=== PATIENT | male | born 1945 | race Caucasian/White ===

== ENCOUNTER 2019-01-24 15:59 | Outpatient (CLI) | payer MEDICARE, OTHER, SELFPAY ==
[2019-01-24 16:30] LABS: Abs Immature Grans 0.02 k/cumm (0.0-0.09); Absolute Basophil Count 0.08 k/cumm (0.0-0.2); Absolute Eosinophil Count 0.18 k/cumm (0.0-0.7); Absolute Lymphocyte Count 2.98 k/cumm (1.2-3.4); Absolute Monocyte Count 1.13 k/cumm (0.11-0.7); Absolute Neutrophil Count 6.37 k/cumm (1.2-6.7); Basophils % 0.7; Eosinophils % 1.7; HCT 49.4 % (40.0-50.0); HGB 16.8 g/dL (13.5-17.5); Immature Grans % 0.2; Lymphocytes % 27.7; Mean Corpuscular Hemoglobin 29.9 pg (27.0-33.0); Mean Corpuscular Volume 87.9 fL (80-95); Monocytes % 10.5; Neutrophils % 59.2; Platelet Count 233 x1000/uL (130-400); RBC 5.62 m/cumm (4.50-6.00); RBC Distribution Width 13.3 % (11.8-14.1); White Blood Cell Count 10.76 k/cumm (4.4-10.8)
[2019-01-24 18:12] LABS: ALT 59 U/L (12-78); AST 40 U/L (15-37); Albumin 3.6 g/dL (3.4-5.0); Alkaline Phosphatase 109 U/L (46-116); Anion Gap 12.4 mmol/L (3-11); BUN 20 mg/dL (7-18); Bilirubin, Total 0.7 mg/dL (0.2-1.0); CO2 25.6 mmol/L (21.0-32.0); CREATININE 1.15 mg/dL (0.70-1.30); Calcium 8.8 mg/dL (8.5-10.1); Chloride 100 mmol/L (98-107); Cholesterol 197 mg/dL (50-200); Glucose 100 mg/dL (70-100); HDL Cholesterol 54 mg/dL (40-60); LDL CHOLESTEROL 123 mg/dL (<100); Potassium 4.1 mmol/L (3.5-5.1); Sodium 138 mmol/L (136-145); TSH (W/Ref FT4) 1.58 uIU/mL (0.358-3.74); Total Protein 7.3 g/dL (6.4-8.2); Triglyceride 127 mg/dL (30-150)
[2019-01-28 15:18] LABS: Lipase 218 U/L (73-393)
[2019-01-28 15:20] LABS: Iron 109 ug/dL (50-175); Total Iron Binding Capacity 298 ug/dL (250-450); Transferrin Sat 37 % (20-55)
[2019-01-30 06:24] LABS: Vitamin D 25 Total 42.1 ng/ml (30-100)
== END 2019-01-24 16:19 ==
PROVIDERS: Family Medicine; PCP Nurse Practitioner Family; Visit Provider Nurse Practitioner Family
DX: K52.9 Noninfective gastroenteritis and colitis, unspecified (principal); R53.83 Other fatigue; I10 Essential (primary) hypertension; E78.5 Hyperlipidemia, unspecified; E55.9 Vitamin D deficiency, unspecified; R73.01 Impaired fasting glucose
CPT/HCPCS: 36415; 80053; 80061; 82306; 83690; 83721; 83540; 83550; 84443; 85025

== ENCOUNTER 2019-02-14 01:22 | Outpatient (CLI) | payer MEDICARE, OTHER, SELFPAY ==
--- NOTE | 2019-02-14 10:30 | ETT_ITS ---
*[facility]* *[facility]* [address] [place] [address] Stress Electrocardiography Javed protocol Date of study: 02/14/2019 *PATIENT PRESENTATION* Height: 180.3cm (71in) Blood Pressure: Weight: 150kg (330lb) BSA: 2.82m^2 Referring physician: Terrie Hook Ordering physician: Terrie Hook Impressions: - Normal study after maximal exercise. - Reduced functional capacity. Indication: R94.31, R06.09. History: REASON FOR TESTING: PATIENT HERE FOR TESTING TODAY FOR FURTHER RISK STRATIFICATION. HE PRESENTED TO HIS PCP ON 01/29/19 FOR FOLLOW UP. DURING VISIT WITH PCP AN EKG WAS DONE WHICH SHOWED SOME INVERTED T WAVES AND POSSIBLE Q WAVES--NO PREVIOUS EKG FOR COMPARISON. PATIENT TODAY REPORTS FOR THE LAST 1 1/2 YEARS TO 2 YEARS MOBILITY HAS BEEN MORE DIFFICULT AND HE HAS HAD SOME INCREASED SOB WITH LIGHT ACTIVITY AND SLIGHT DIZZYNESS THAT IS RELEIVED WITH SITTING DOWN AND RESTING. HE REPORTS WHEN HE SITS DOWN HIS VISION BECOMES TUNNEL VISION TO THE POINT OF ALMOST PASSING OUT. HE DENIES CHEST PAIN/PRESSURE OR SOB UPON ARRIVAL TO TESTING TODAY. SIGNIFICANT PAST MEDICAL HISTORY: CHRONIC LOWER BACK AND BILATERAL HIP PAIN. SMOKING STATUS: NEVER. EXERCISE ROUTINE: LIMITED CTIVITY D/T BILATERAL HIP AND LOWER BACK PAIN. Risk factors: Hypertension. Obesity. Dyslipidemia. Cholesterol: 197mg/dl. HDL: 54mg/dl. LDL: 123mg/dl. Triglycerides: 127mg/dl. ALLERGIES: NO KNOWN ALLERGIES. MEDICATIONS: ASPIRIN 81 MG DAILY, ACETAMINOPHEN 1000 MG QID PRN, LIALDA 4.8 GM DAILY, VITAMIN D 3000 UNITS DAILY, LIDOCAINE 5% PATCH TOPICAL DAILY PRN, ATORVASTATIN 40 MG DAILY, FLUTICASONE PROPIONATE NASAL SPRAY 50 MCG DAILY PRN, BENAZEPRIL 20 MG DAILY. Protocol: Javed protocol. Baseline ECG: SINUS RHYTHM. HR 64 BPM. Stress protocol: + +---+ + !Stage !HR !BP (mmHg) ! + +---+ + !Baseline supine !64 !140/70 (93) ! + +---+ + !Baseline standing !86 !136/70 (92) ! + +---+ + !Stage I; 1.7mph, 10degrees; 3 min !117!180/60 (100)! + +---+ + !Stage II; 2.5mph, 12degrees; 3 min!120!180/60 (100)! + +---+ + !Peak stress !138! ! + +---+ + !Recovery; 1 min !132!220/70 (120)! + +---+ + !Recovery; 3 min !109!220/70 (120)! + +---+ + !Recovery; 6 min !92 !200/80 (120)! + +---+ + !Recovery; 9 min !90 !190/80 (117)! + +---+ + !Recovery; 12 min !86 !160/80 (107)! + +---+ + !Recovery; 15 min !86 !160/70 (100)! + +---+ + * Stress results: STRESS TEST ENDED IN 4 MINUTES 36 SECONDS DUE TO SOB AND BILATERAL HIP PAIN. NORMAL HEART RATE TO EXERCISE. ELEVATED BLOOD PRESSURE TO RECOVERY FROM EXERCISE. MAX HEART RATE: 138. 93 % OF TARGET HEART RATE ACHIEVED. MET'S: 6.55 FREQUENT PVC'S . NO ANGINA. NO SIGNIFICANT ST SEGMENT CHANGES. MODERATELY DIMINISHED FUNCTIONAL CAPACITY: The rate-pressure product for the peak heart rate and blood pressure was 36816td Hg/min. Study data: Babita Kelly MD supervised and was readily available during the procedure. This study was interpreted by [facility]. Study status: Routine. Consent: The risks, benefits, and alternatives to the procedure were explained to the patient and informed consent was obtained. Procedure: Initial setup. A baseline ECG was recorded. Surface ECG leads and manual cuff blood pressure measurements were monitored. Heart sounds: Normal. Lung sounds: Normal. Treadmill exercise testing was performed using the Javed protocol. Study completion: The patient tolerated the procedure well and was discharged from the lab. Discharge: The patient left the laboratory in stable condition. Birthdate: Patient birthdate: 1945. Sex: Gender: male. Study date: Study date: 02/14/2019. Study time: 00:01 AM. Signature Documentation: The Stress ECG portion of this study was interpreted by Babita Kelly MD. Electronically signed by Babita Kelly 02/14/2019 15:09
== END 2019-02-14 01:42 ==
PROVIDERS: PCP Nurse Practitioner Family; Visit Provider Nurse Practitioner Family
DX: R06.09 Other forms of dyspnea (principal); R94.31 Abnormal electrocardiogram [ECG] [EKG]
CPT/HCPCS: 93016; 93018; 93017

== ENCOUNTER 2020-07-01 04:10 | Outpatient (CLI) | payer MEDICARE, OTHER, SELFPAY ==
[2020-07-01 16:25] LABS: ALT 76 U/L (16-63); AST 45 U/L (15-37); Albumin 3.6 g/dL (3.4-5.0); Alkaline Phosphatase 99 U/L (46-116); Anion Gap 8.9 mmol/L (3-11); BUN 15 mg/dL (7-18); Bilirubin, Total 0.6 mg/dL (0.2-1.0); CO2 26.1 mmol/L (21.0-32.0); CREATININE 0.92 mg/dL (0.70-1.30); Calcium 8.4 mg/dL (8.5-10.1); Calculated LDL 173 mg/dL (<100); Chloride 102 mmol/L (98-107); Cholesterol 252 mg/dL (<200); Glucose 103 mg/dL (74-106); HDL Cholesterol 47 mg/dL (40-60); Potassium 4.2 mmol/L (3.5-5.1); Sodium 137 mmol/L (136-145); Total Protein 7.2 g/dL (6.4-8.2); Triglyceride 164 mg/dL (<150)
[2020-07-01 16:30] LABS: Hemoglobin A1C 6.1 % (<5.7)
[2020-07-01 22:53] LABS: PSA, Screening 1.2 ng/mL (0.0-6.5)
== END 2020-07-01 04:30 ==
PROVIDERS: PCP Nurse Practitioner Family; Visit Provider Nurse Practitioner Family
DX: I10 Essential (primary) hypertension (principal); R73.01 Impaired fasting glucose; E78.5 Hyperlipidemia, unspecified
CPT/HCPCS: 36415; 80053; 80061; 84153; 83036

== ENCOUNTER 2020-08-06 02:04 | Outpatient (CLI) | payer MEDICARE, OTHER, SELFPAY ==
--- NOTE | 2020-08-06 08:00 | DI.US_ITS ---
EXAM: US ABDOMEN-COMPLETE CLINICAL HISTORY: ?Fatty liver?, ELEVATED LFTS, R79.89 TECHNIQUE: Ultrasound abdomen performed using standard protocol. COMPARISON: No exams were available for comparison FINDINGS: ABDOMINAL AORTA AND IVC: Visualized portions normal caliber. PANCREAS: Normal where visualized. Partially obscured by overlying bowel gas LIVER: Hyperechoic indicating steatosis. No discrete focal hepatic lesions identified. GALLBLADDER: No evidence of cholelithiasis. No evidence of wall thickening. No pericholecystic fluid identified. BILIARY SYSTEM: Common bile duct measures 5 millimeter. No intrahepatic biliary ductal dilation. ZELAYA'S SIGN: Negative. KIDNEYS: Kidneys are symmetric in size. No evidence of renal calculi. No evidence of hydronephrosis. No renal mass or cyst identified. SPLEEN: Not enlarged. ASCITES: None seen. IMPRESSION: Somewhat limited exam due to body habitus. However, there is no evidence of cholelithiasis nor dilat ation of the biliary tree. Hepatic steatosis is evident. Correlation with appropriate patent blood work recommended. There is no ascites DATA REPOSITORY:
== END 2020-08-06 02:24 ==
PROVIDERS: PCP Nurse Practitioner Family; Visit Provider Nurse Practitioner Family
DX: R79.89 Other specified abnormal findings of blood chemistry (principal); K76.0 Fatty (change of) liver, not elsewhere classified
CPT/HCPCS: 76700

== ENCOUNTER → 2022-07-04 01:52 | Outpatient (CLI) | payer MEDICARE, OTHER, SELFPAY ==
--- NOTE | 2022-07-04 15:00 | DI.RAD_ITS ---
Exam(s) XR KNEE RT 3V AP,LAT,DAREK EXAM: XR KNEE RT 3V AP,LAT,DAREK CLINICAL HISTORY: BILAT KNEE PAIN, DJD. TECHNIQUE: 2D digital imaging was performed. COMPARISON: CR RIGHT KNEE LIMITED 1 OR 2 VIEW from 10/30/2017 FINDINGS: 3 views There is no evidence of fracture or joint effusion. However, there is [id number] narrowing of the medial compartment with an element of Verus deformity. The lateral compartment exhibits normal heigh t but small marginal osteophytes. Patellofemoral compartment exhibits significant degenerative quevedo es. IMPRESSION: Degenerative changes described above, most evident in the medial compartment. Some progression when compared to the weight-bearing view October 2017. DATA REPOSITORY: RADIATION DOSE DELIVERED:
--- NOTE | 2022-07-04 15:00 | DI.RAD_ITS ---
Exam(s) XR KNEE LT 3V AP,LAT,DAREK EXAM: XR KNEE LT 3V AP,LAT,DAREK CLINICAL HISTORY: BILAT KNEE PAIN, DJD. TECHNIQUE: 2D digital imaging was performed. COMPARISON: CR XR KNEE RT 3V AP,LAT,DAREK from 07/04/2022 FINDINGS: 3 views No evidence fracture nor obvious joint effusion. However, there is [id number] narrowing of compart ment with Verus deformity. Lateral compartment exhibits normal height. Patellofemoral compartment u nremarkable. 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 No significant osseous lesions. DATA REPOSITORY: RADIATION DOSE DELIVERED:
== END ==
PROVIDERS: Visit Provider Neuromusculoskeletal Medicine & OMM
DX: M17.0 Bilateral primary osteoarthritis of knee (principal)
CPT/HCPCS: 73562

== ENCOUNTER 2022-09-28 13:18 | Outpatient (CLI) | payer MEDICARE, OTHER, SELFPAY ==
[2022-09-28 13:22] LABS: Abs Immature Grans 0.04 10^3/uL (0.0-0.06); Absolute Basophil Count 0.14 10^3/uL (0.0-0.2); Absolute Eosinophil Count 0.16 10^3/uL (0.0-0.7); Absolute Lymphocyte Count 3.51 10^3/uL (1.2-3.4); Absolute Monocyte Count 0.97 10^3/uL (0.1-0.8); Absolute Neutrophil Count 6.57 10^3/uL (1.2-6.7); Basophils % 1.2; Eosinophils % 1.4; HCT 45.8 % (40.0-50.0); HGB 15.2 g/dL (13.5-17.5); Immature Grans % 0.4; Lymphocytes % 30.8; MCH 30.1 pg (27.0-33.0); MCHC 33.2 % (32.0-36.0); MCV 91 fL (80-95); MPV 9.4 fL (8.0-11.0); Monocytes % 8.5; Neutrophils % 57.7; Platelet Count 234 10^3/uL (130-400); RBC 5.05 10^6/uL (4.36-5.78); RDW 12.9 % (11.8-14.1); RDW-SD 42.8 fL; WBC 11.39 10^3/uL (4.4-10.8)
[2022-09-28 14:14] LABS: ALT 39 U/L (16-63); AST 30 U/L (15-37); Albumin 3.8 g/dL (3.4-5.0); Alkaline Phosphatase 119 U/L (46-116); BUN 18 mg/dL (7-18); Bilirubin, Total 0.6 mg/dL (0.2-1.0); CREATININE 0.9 mg/dL (0.70-1.30); Calcium 8.9 mg/dL (8.5-10.1); Calculated LDL 65 mg/dL (<100); Chloride 103 mmol/L (98-107); Cholesterol 149 mg/dL (<200); Estimated GFR 89.07 (mL/min/1.73m2); Glucose 121 mg/dL (74-106); HDL Cholesterol 65 mg/dL (40-60); Potassium 4.2 mmol/L (3.5-5.1); Sodium 138 mmol/L (136-145); Total Protein 7.6 g/dL (6.4-8.2); Triglyceride 99 mg/dL (<150)
[2022-09-28 14:31] LABS: Amylase 61 U/L (25-115); Lipase 203 U/L (73-393)
[2022-09-28 14:46] LABS: Hemoglobin A1C 6.3 % (<5.7)
[2022-09-29 08:59] LABS: PSA, Screening 1.3 ng/mL (<=6.5)
== END 2022-09-28 13:19 | disposition home or self-care (01) ==
LOC: LBO 13:19
PROVIDERS: Visit Provider Nurse Practitioner Family
DX: Z12.5 Encounter for screening for malignant neoplasm of prostate; E78.5 Hyperlipidemia, unspecified; I10 Essential (primary) hypertension; R73.09 Other abnormal glucose
CPT/HCPCS: 36415; 80053; 80061; 83690; 84153; 82150; 83036; 85025

== ENCOUNTER 2024-03-25 03:32 | Outpatient (CLI) | payer MEDICARE, OTHER, SELFPAY ==
[2024-03-25 14:12] LABS: Abs Immature Grans 0.03 10^3/uL (0.0-0.06); Absolute Basophil Count 0.11 10^3/uL (0.0-0.2); Absolute Eosinophil Count 0.12 10^3/uL (0.0-0.7); Absolute Lymphocyte Count 2.71 10^3/uL (1.2-3.4); Absolute Monocyte Count 0.84 10^3/uL (0.1-0.8); Eosinophils % 1.1 %; HCT 44.9 % (40.0-50.0); HGB 15.7 g/dL (13.5-17.5); Immature Grans % 0.3 %; Lymphocytes % 24.1 %; MCH 30.7 pg (27.0-33.0); MCV 88 fL (80-95); MPV 9.6 fL (8.0-11.0); Monocytes % 7.5 %; Platelet Count 274 10^3/uL (130-400); RBC 5.11 10^6/uL (4.36-5.78); RDW 11.8 % (11.8-14.1); RDW-SD 38.5 fL; WBC 11.26 10^3/uL (4.4-10.8)
[2024-03-25 14:15] LABS: Absolute Neutrophil Count 7.43 10^3/uL (1.2-6.7)
[2024-03-25 15:26] LABS: ALT 68 U/L (16-63); AST 56 U/L (15-37); Albumin 3.5 g/dL (3.4-5.0); Alkaline Phosphatase 127 U/L (46-116); Anion Gap 10.4 mmol/L (3-11); BUN 21 mg/dL (7-18); Bilirubin, Total 0.64 mg/dL (0.2-1.0); CO2 28.6 mmol/L (21.0-32.0); CREATININE 1.2 mg/dL (0.70-1.30); Calcium 9.5 mg/dL (8.5-10.1); Calculated LDL 62 mg/dL (<100); Chloride 99 mmol/L (98-107); Cholesterol 147 mg/dL (<200); Estimated GFR 62.29 (mL/min/1.73m2); Glucose 259 mg/dL (74-106); HDL Cholesterol 58 mg/dL (40-60); Potassium 4.2 mmol/L (3.5-5.1); Sodium 138 mmol/L (136-145); Total Protein 7.8 g/dL (6.4-8.2); Triglyceride 135 mg/dL (<150)
[2024-03-25 15:43] LABS: Lipase 83 U/L (16-77)
[2024-03-26 09:17] LABS: PSA, Screening 1.3 ng/mL (<=6.5)
[2024-03-29 16:42] LABS: 25-Hydroxy D Total 48 ng/mL; 25-Hydroxy D2 <4.0 ng/mL; 25-Hydroxy D3 48 ng/mL
== END 2024-03-25 03:33 | disposition home or self-care (01) ==
LOC: LBO 03:32
PROVIDERS: Visit Provider Nurse Practitioner Family
DX: I10 Essential (primary) hypertension (principal); R73.03 Prediabetes; E66.01 Morbid (severe) obesity due to excess calories
CPT/HCPCS: 36415; 80053; 80061; 82306; 83690; 84153; 83036; 85025